=== PATIENT | male | born 1950 | race Caucasian/White ===

== ENCOUNTER 2017-04-09 18:35 | Inpatient (IN) | payer MEDICARE, OTHER ==
[2017-04-09] MEDS ORDERED: IOHEXOL 350 MG/ML 10 ML VIAL (for RAD DIAG) IVCONTRAST ONE ×2 (18:36→21:10)
[2017-04-09] MEDS ORDERED: MORPHINE SULFATE 4 MG/ML INJ ONE ×2 (18:40→18:48)
[2017-04-09] MEDS ORDERED: DIPHTH/TETANUS/ACEL PERTUSSIS (BOOSTER) 0.5 ML VIAL/PFS IM ONE (18:47)
[2017-04-09] MEDS ORDERED: ceFAZolin 2 GM PREMIX 50 ML ONE (18:48)
[2017-04-09 18:50] VITALS: O2SAT 99
[2017-04-09 19:00] LABS: I-STAT POTASSIUM 4.1 MMOL/L (3.5-4.9)
[2017-04-09 19:01] LABS: AUTOMATED NEUTROPHIL # 11.9 TH/MM3 (1.8-7.7); BASOPHIL # 0.1 TH/MM3 (0-0.2); BASOPHIL % 0.7 % (0.0-2.0); EOSINOPHIL # 0.1 TH/MM3 (0-0.4); EOSINOPHIL % 0.9 % (0.0-4.0); HEMATOCRIT 42.8 % (39.0-51.0); HEMO FLAGS DIFF FINAL; LYMPH % 14.2 % (9.0-44.0); LYMPHOCYTE # 2.2 TH/MM3 (1.0-4.8); MEAN CORPUSCULAR HEMOGLOBIN 36.2 PG (27.0-34.0); MEAN CORPUSCULAR HGB CONC 35.8 % (32.0-36.0); NEUT % 78.2 % (16.0-70.0); PLATELET COUNT 276 TH/MM3 (150-450); RED BLOOD COUNT 4.24 MIL/MM3 (4.50-5.90); RED CELL DISTRIBUTION WIDTH 15.1 % (11.6-17.2); WHITE BLOOD COUNT 15.3 TH/MM3 (4.0-11.0)
[2017-04-09 19:11] LABS: APTT (PATIENT) 23.5 SEC (24.3-30.1); INTERNATIONAL NORMALIZED RATIO 1.1 RATIO; PROTHROMBIN TIME - PATIENT 10.7 SEC (9.8-11.6)
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
[2017-04-09] MEDS ORDERED: RESP: ALBUTEROL 2.5 MG/IPRATROPIUM 0.5 MG NEB (SCH) NEB ONE (20:30)
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
[2017-04-09 20:40] VITALS: BP 159/105; PULSE 112; RESP 20; O2SAT 94
[2017-04-09] MEDS ORDERED: MORPHINE SULFATE 2 MG/ML INJ IV PUSH ONE (20:45)
[2017-04-09 20:52] VITALS: O2SAT 97
[2017-04-09 21:06] VITALS: BP 141/81; PULSE 105; RESP 24; O2SAT 97
[2017-04-09] MEDS ORDERED: ONDANSETRON HCL 4 MG/2 ML VIAL IV PUSH PRN (22:00)
[2017-04-09] MEDS ORDERED: ACETAMINOPHEN 500 MG CPLT PO PRN (22:00)
[2017-04-09] MEDS ORDERED: SODIUM CHLORIDE 0.9% FLUSH 10 ML FLUSH IV FLUSH PRN (22:00)
[2017-04-09] MEDS: SODIUM CHLOR 0.9% 1000 ML INJ 1,000 ML IV SCH (22:25)
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
[2017-04-09] MEDS: MORPHINE SULFATE 2 MG/ML INJ IV PUSH PRN (22:29)
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
[2017-04-10] VITALS (12 sets, daily range): BP systolic 111–165; BP diastolic 73–85; PULSE 77–94; RESP 12–20; TEMP 79.8–98.5; O2SAT 97–98
[2017-04-10] MEDS ORDERED: ONDANSETRON HCL 4 MG/2 ML VIAL IV PUSH PRN (00:15)
[2017-04-10] MEDS ORDERED: LACTULOSE SYRUP 20 GM/30 ML CUP PO PRN (00:15)
[2017-04-10] MEDS ORDERED: CHLORHEXIDINE GLUCONATE 2 % 1 PACK (2 CLOTHS) TOP PRN (00:15)
[2017-04-10] MEDS ORDERED: BISACODYL 10 MG SUPP RECTAL PRN (00:15)
[2017-04-10] MEDS ORDERED: MAGNESIUM HYDROXIDE SUSP 30 ML CUP PO PRN (00:15)
[2017-04-10] MEDS ORDERED: MISCELLANEOUS NURSING INFORMATION XX SCH (00:15)
[2017-04-10] MEDS ORDERED: SODIUM CHLORIDE 0.9% FLUSH 10 ML FLUSH IV FLUSH PRN (00:15)
[2017-04-10] MEDS ORDERED: RESP: ALBUTEROL 2.5 MG/3 ML NEB (PRN) INH (00:15)
[2017-04-10] MEDS: ACETAMINOPHEN/HYDROcodone 325 MG/7.5 MG TAB PO PRN ×3 (00:23→14:52)
[2017-04-10] MEDS: CHLORHEXIDINE GLUCONATE 2 % 1 PACK (2 CLOTHS) TOP SCH (01:32)
[2017-04-10] MEDS: MORPHINE SULFATE 2 MG/ML INJ IV PUSH PRN ×4 (02:51→18:13)
[2017-04-10] MEDS: SODIUM CHLOR 0.9% 1000 ML INJ 1,000 ML IV SCH ×3 (06:34→21:01)
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
[2017-04-10] MEDS: RESP: ALBUTEROL 2.5 MG/IPRATROPIUM 0.5 MG NEB (SCH) NEB ×3 (07:27→14:43)
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
[2017-04-10] MEDS: FAMOTIDINE 20 MG/2 ML VIAL IV PUSH SCH ×2 (08:38→21:07)
[2017-04-10] MEDS: SODIUM CHLORIDE 0.9% FLUSH 10 ML FLUSH IV FLUSH SCH ×2 (08:39→21:00)
[2017-04-10] MEDS: DOCUSATE SODIUM 50 MG/SENNA 8.6 MG TAB PO SCH ×3 (08:39→21:07)
[2017-04-10] MEDS ORDERED: SODIUM CHLORIDE 0.9% FLUSH 10 ML FLUSH IV FLUSH SCH (09:00)
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
[2017-04-10] MEDS ORDERED: ceFAZolin INJ 1,000 MG VIAL ONE (10:03)
[2017-04-10] MEDS ORDERED: GENTAMICIN SULFATE 80 MG/2 ML VIAL ONE (10:03)
[2017-04-10] MEDS ORDERED: VANCOMYCIN HCL 1000 MG VIAL ONE (10:03)
[2017-04-10] MEDS ORDERED: SODIUM CHLOR 0.9% 250 ML INJ 250 ML ONE (10:04)
[2017-04-10] MEDS ORDERED: BACITRACIN TOP OINT 15 GM TUBE ONE (10:04)
[2017-04-10] MEDS ORDERED: ACETAMINOPHEN 1000 MG/100 ML 100 ML IV ONE (10:12)
[2017-04-10] MEDS ORDERED: chlordiazePOXIDE 25 MG CAP PO PRN (11:00)
--- NOTE | 2017-04-10 11:33 | PD.OP ---
cc: Luis A Rojas MD Operative Report Date of Surgery: Apr 10, 2017 Preoperative Diagnosis: Comminuted displaced left distal radius fracture Minimally displaced left fifth metacarpal fracture Postoperative Diagnosis: Procedure: External fixation left wrist, open reduction internal fixation left distal radius Surgeon: Luis A Rojas Stem Setter(s): NICOL Mckeon PA-C The surgical procedure was assisted by my physician geriatric assistant. My P.A. presence was necessary throughout this case for the manipulation and positioning of the surgical extremity. My P.A. was assisting me throughout the duration of this procedure. The skill set of a physician geriatric assistant was medically necessary to complete this procedure. During the surgical case the nursing surgical services director was working at the back table and the physician geriatric assistant was directly assisting me. Operation and Findings: Patient was seen and evaluated preoperatively and found to have a displaced intra-articular left distal radius fracture. Informed consent was obtained after detailed discussion of risk and benefits including bleeding, infection, injury to arteries, nerves, and blood vessels, weakness and numbness of hand, and tendon rupture. Informed consent was obtained. Patient received IV antibiotics prior to incision. Timeout procedure was performed. Operative extremity was prepped with alcohol followed by Hibiclens and draped usual sterile fashion. A standard volar approach to the distal radius was utilized. A 3 inch incision was made over the FCR tendon. Tendon sheath was opened. Pronator quadratus was elevated up. The fracture site was now visualized. The fracture did have intra-articular extension. There was comminution of the articular surface and metaphyseal region. Traction was applied. At this point decision was made to apply external fixation to coffee roaster helper in reduction. Small incisions were made over the distal radius and second metacarpal. Soft tissue was dissected bluntly. Pin sites are predrilled. Synthes external fixator pins were now placed into the radial shaft and second metacarpal. Clamps were applied. Traction was applied across the wrist. The external fixator was tightened to hold reduction. Next attention was turned back towards open reduction internal fixation of fracture. The articular surface was reduced. Fracture fragments were manipulated to achieve excellent reduction. K wires were used to hold provisional fixation. Fluoroscopy confirmed appropriate alignment of fracture. A Synthes 2 column variable angle distal radius plate was selected. Plate was provisionally fixed to bone with K wires. 2.7 and 2.4 cortical screws were used to compress plate to bone. Fluoroscopy confirmed appropriate alignment of fracture with well-placed hardware. Multiple 2.4 locking screws were now placed distally. Screws were predrilled and measured for appropriate length. 2 additional screws were placed into the shaft. K wires were removed. Final fluoroscopy revealed excellent of fracture with well-placed hardware. The wound was thoroughly irrigated with sterile saline. Subcutaneous tissue was closed with 3-0 Vicryl and skin was closed with 3-0 nylon. Sterile dressings were applied with Xeroform, 4 x 4, soft roll, and a well padded ulnar gutter splint. Patient was awakened and transferred to recovery room in stable condition Luis A Rojas MD Apr 10, 2017 11:33
--- NOTE | 2017-04-10 11:50 | RADRPT ---
EXAM DATE/TIME: 04/10/2017 11:24 [facility] COMPARISON: WRIST LEFT LIMITED (AP & LAT), April 09, 2017, 18:36. INDICATIONS : Post-op ORIF left distal radius fracture. MEDICAL HISTORY : None. SURGICAL HISTORY : None. ENCOUNTER: Initial ACUITY: 2 days PAIN SCORE: Non-responsive. LOCATION: Left upper extremity FINDINGS: Two view examination of the left wrist demonstrates interval placement of the fracture fixation plate anteriorly across the radial fracture with now excellent alignment of the bone fragments. CONCLUSION: The distal radius has been fixated with an anterior plate now in excellent position . Len Pierson MD on April 10, 2017 at 11:47 Board Certified Radiologist. This report was verified electronically.
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
[2017-04-10] MEDS: MULTIVITAMIN INJ 10 ML, THIAMINE INJ 100 MG, FOLIC ACID INJ 1 MG in SODIUM CHLORID 0.9%... IV SCH (18:12)
[2017-04-10] MEDS: ACETAMINOPHEN/HYDROcodone 325 MG/10 MG TAB PO PRN (21:07)
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
[2017-04-11] VITALS (9 sets, daily range): BP systolic 113–138; BP diastolic 75–91; PULSE 80–88; RESP 16–20; TEMP 96.1–97.2; O2SAT 95–100
[2017-04-11] MEDS: MORPHINE SULFATE 2 MG/ML INJ IV PUSH PRN (00:23)
[2017-04-11] MEDS: ACETAMINOPHEN/HYDROcodone 325 MG/10 MG TAB PO PRN ×5 (03:18→22:49)
[2017-04-11] MEDS ORDERED: VENTAER INH (03:23)
[2017-04-11] MEDS ORDERED: ADVA100A INH (03:23)
[2017-04-11] MEDS ORDERED: SYMB80AE INH (03:23)
[2017-04-11] MEDS ORDERED: MORPHINE SULFATE 4 MG/ML INJ IV PUSH ONE (03:55)
[2017-04-11] MEDS: CHLORHEXIDINE GLUCONATE 2 % 1 PACK (2 CLOTHS) TOP SCH (04:00)
[2017-04-11 04:05] LABS: AUTOMATED NEUTROPHIL # 6.8 TH/MM3 (1.8-7.7); BASOPHIL % 0.3 % (0.0-2.0); EOSINOPHIL % 0.1 % (0.0-4.0); HEMATOCRIT 36.5 % (39.0-51.0); HEMO FLAGS DIFF FINAL; LYMPH % 10.5 % (9.0-44.0); LYMPHOCYTE # 0.9 TH/MM3 (1.0-4.8); MEAN CELL VOLUME 102.3 FL (80.0-100.0); MEAN CORPUSCULAR HEMOGLOBIN 35.1 PG (27.0-34.0); MEAN CORPUSCULAR HGB CONC 34.3 % (32.0-36.0); MONO % 11.6 % (0.0-8.0); NEUT % 77.5 % (16.0-70.0); PLATELET COUNT 141 TH/MM3 (150-450); RED BLOOD COUNT 3.56 MIL/MM3 (4.50-5.90); RED CELL DISTRIBUTION WIDTH 15.1 % (11.6-17.2); WHITE BLOOD COUNT 8.8 TH/MM3 (4.0-11.0)
[2017-04-11 04:26] LABS: ALT (GPT) 24 U/L (12-78); ANION GAP 5 MEQ/L (5-15); AST (GOT) 30 U/L (15-37); BICARBONATE 29.4 MEQ/L (21.0-32.0); BLOOD UREA NITROGEN 13 MG/DL (7-18); CHLORIDE 104 MEQ/L (98-107); GLOMERULAR FILTRATION RATE 111 ML/MIN (>89); POTASSIUM 4.2 MEQ/L (3.5-5.1); SODIUM (NA) 138 MEQ/L (136-145)
[2017-04-11 04:28] LABS: ALKALINE PHOSPHATASE 67 U/L (45-117); TOTAL BILIRUBIN ADULT 1.1 MG/DL (0.2-1.0)
--- NOTE | 2017-04-11 07:12 | PD.ORT.PN ---
Subjective Subjective Remarks Resting comfortably with no new complaints. Objective Vitals Vital Signs Date Time Temp Pulse Resp B/P (MAP) Pulse Ox O2 Delivery O2 Flow Rate FiO2 04/11/17 04:00 97.2 85 20 118/79 (92) 99 04/11/17 03:33 98 Nasal Cannula 2.00 04/11/17 00:31 98 04/11/17 00:00 96.1 80 16 113/75 (88) 100 04/10/17 20:00 96.6 88 18 111/75 (87) 98 04/10/17 19:31 Room Air 04/10/17 16:00 77 18 128/73 (91) 97 04/10/17 13:00 86 04/10/17 13:00 98.4 86 14 139/82 (101) 98 04/10/17 12:30 83 14 143/79 (100) 99 Nasal Cannula 3 04/10/17 12:15 88 15 161/81 (107) 99 Nasal Cannula 3 04/10/17 12:06 98.4 93 12 131/74 (93) 98 Nasal Cannula 3 04/10/17 10:00 77 04/10/17 09:30 95 Nasal Cannula 2.00 04/10/17 08:00 87 04/10/17 08:00 79.8 86 20 120/85 (97) 97 04/10/17 07:31 97 Nasal Cannula 4.00 I/O 04/10/17 04/10/17 04/10/17 04/11/17 04/11/17 04/11/17 07:00 15:00 23:00 07:00 15:00 23:00 Intake Total 1250 ml 796 ml 1413 ml Output Total 1200 ml 400 ml 700 ml 350 ml Balance -1200 ml 850 ml 96 ml 1063 ml Intake Oral 240 ml 240 ml IV Total 556 ml 1173 ml Other 1250 ml Output Urine Total 1200 ml 350 ml 700 ml 350 ml Estimated Blood Loss 50 ml # Bowel Movements 0 0 0 Result Diagram: 04/11/17 0352 04/11/17 035 Imaging Last 24 hours Impressions Thoracic Spine CT 04/09/17 1838 Signed Impressions: Service Date/Time: Sunday, April 09, 2017 19:16 - CONCLUSION: Fractures of the anterior T3 and T4 with significant paraspinal soft tissue swelling. No involvement of the posterior cortex. There is approximately 15%% loss of height of the T4 vertebral body. Elijah Joseph MD Pelvis X-Ray 04/09/171837 Signed Impressions: Service Date/Time: Sunday, April 09, 2017 18:36 - CONCLUSION: Limited quality examination should be considered nondiagnostic for exclusion of fractures. Elijah Joseph MD Lumbar Spine CT 04/09/171837 Signed Impressions: Service Date/Time: Sunday, April 09, 2017 19:16 - CONCLUSION: 1. No evidence of fracture or spondylolisthesis. 2. Disc bulging at L3-L5 3. Central and left sided epidural impressions due to either to disc bulge or protrusion at L5-S1. Elijah Joseph MD Head CT 04/09/171837 Signed Impressions: Service Date/Time: Sunday, April 09, 2017 19:03 - CONCLUSION: 1. No acute findings in the brain. 2. Right high frontal scalp hematoma without evidence of skull fracture. 3. There is some image degradation of the lobe convexity images due to extrinsic metallic wires and motion. Recommend performing a followup examination in 12-24 hours for complete clearance. Eliajh Joseph MD Chest X-Ray 04/09/171837 Signed Impressions: Service Date/Time: Sunday, April 09, 2017 18:36 - CONCLUSION: The lungs are clear. Elijah Joseph MD Chest CT 04/09/171837 Signed Impressions: Service Date/Time: Sunday, April 09, 2017 19:16 - CONCLUSION: 1. T4 fracture of the anterior body with associated soft tissue swelling in the pre-spinal soft tissues. 2. Moderate severity emphysema. No focal parenchymal opacities or pneumothorax. Elijah Joseph MD Cervical Spine CT 04/09/171837 Signed Impressions: Service Date/Time: Sunday, April 09, 2017 19:03 - CONCLUSION: 1. Mildly comminuted fractures of the left lateral mass of C1 traversing through the foramen transversarium. 2. C4 fractures including anterior superior vertebral body chip fracture and minimal displaced fracture of the right bifid spinous process. 3. C7 fractures, nondisplaced including the angle of the superior articular facet and lateral mass including junction with the lamina. 4. The atlantoaxial articulation is maintained and there is normal alignment of vertebral bodies throughout the cervical spine without evidence of compression deformities. Elijah Joseph MD Abdomen/Pelvis CT 04/09/17 1838 Signed Impressions: Service Date/Time: Sunday, April 09, 2017 19:16 - CONCLUSION: 1. No evidence of free fluid or solid organ disruption. 2. Abnormal appearance to the liver with numerous small round hypodense structures, possibly representing numerous cysts. This is incompletely evaluated Elijah Joseph MD Objective Remarks Bilateral lower extremities: Full range of motion and neurovascularly intact Right upper extremity: Full range of motion neurovascularly intact Left upper extremity: Clean dry dressings intact. External fixator in place. Intact sensation in all fingers. Is able fully extend and flex all fingers good capillary refills Assessment & Plan Assessment and Plan Severely comminuted left distal radius fracture status post ORIF and external fixation of left distal radius POD 1 Nonweightbearing at upper extremity Maintain dressings of wrist Nonweightbearing left wrist and hand. May use elbow for repositioning Follow-up x-rays in [address] Rojas or James Richey Jr. Apr 11, 2017 07:12
[2017-04-11] MEDS ORDERED: VITA500012 PO (07:13)
[2017-04-11] MEDS ORDERED: HYDR-3583 PO (07:13)
[2017-04-11] MEDS ORDERED: CALCTAB19 PO (07:13)
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
[2017-04-11] MEDS: RESP: ALBUTEROL 2.5 MG/IPRATROPIUM 0.5 MG NEB (SCH) NEB (08:30)
[2017-04-11] MEDS: SODIUM CHLORIDE 0.9% FLUSH 10 ML FLUSH IV FLUSH SCH ×2 (09:00→20:00)
[2017-04-11] MEDS: MAGNESIUM HYDROXIDE SUSP 30 ML CUP PO SCH ×2 (09:38→17:58)
[2017-04-11] MEDS: DOCUSATE SODIUM 50 MG/SENNA 8.6 MG TAB PO SCH ×2 (09:38→19:59)
[2017-04-11] MEDS: FAMOTIDINE 20 MG TAB PO SCH ×2 (09:38→20:00)
[2017-04-11] MEDS ORDERED: NON-FORMULARY DRUG (Fluticasone-Salmeterol Inh (Advair Diskus Inh) 1 PUFF) INH SCH (10:45)
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
[2017-04-11] MEDS: CALCIUM/VITAMIN D 250 MG/125 U TAB PO SCH ×2 (12:00→19:59)
[2017-04-11] MEDS ORDERED: ERGOCALCIFEROL (VIT D2) 50,000 UNIT CAP PO SCH (12:00)
[2017-04-11] MEDS: BUDESONIDE-FORMOTEROL 80/4.5 MCG INHALER INH SCH ×2 (12:00→21:14)
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
[2017-04-11] MEDS: ENOXAPARIN SODIUM 30 MG/0.3 ML SYRINGE SQ SCH (13:29)
[2017-04-11] MEDS: SODIUM CHLOR 0.9% 1000 ML INJ 1,000 ML IV SCH ×2 (13:53→21:54)
[2017-04-11] MEDS: MULTIVITAMIN INJ 10 ML, THIAMINE INJ 100 MG, FOLIC ACID INJ 1 MG in SODIUM CHLORID 0.9%... IV SCH (17:58)
[2017-04-11] MEDS: SENNOSIDES 8.6 MG TAB PO PRN (19:59)
[2017-04-11] MEDS ORDERED: CHLO25CA9 PO (22:17)
[2017-04-11] MEDS ORDERED: ENOX30P SQ (22:17)
[2017-04-11] MEDS ORDERED: ACET500T13 PO (22:17)
[2017-04-11] MEDS ORDERED: FAMO20TA2 PO (22:17)
[2017-04-11] MEDS ORDERED: MAGN30S PO (22:17)
[2017-04-11] MEDS ORDERED: HYDR-3580 PO (22:17)
[2017-04-11] MEDS ORDERED: PERI PO (22:17)
[2017-04-11] MEDS: ALBUTEROL SULFATE 90 MCG/ACT HFA 8 GM INHALER INH PRN ×2 (22:49→22:52)
[2017-04-12] VITALS: BP 133/82; PULSE 79; RESP 20; TEMP 96.7; O2SAT 99
[2017-04-12] MEDS: ENOXAPARIN SODIUM 30 MG/0.3 ML SYRINGE SQ SCH (00:18)
[2017-04-12] MEDS: CHLORHEXIDINE GLUCONATE 2 % 1 PACK (2 CLOTHS) TOP SCH (00:52)
[2017-04-12] MEDS: MAGNESIUM HYDROXIDE SUSP 30 ML CUP PO SCH (00:52)
[2017-04-12] MEDS: ACETAMINOPHEN/HYDROcodone 325 MG/10 MG TAB PO PRN ×3 (02:28→10:47)
[2017-04-12 05:22] LABS: AUTOMATED NEUTROPHIL # 3.9 TH/MM3 (1.8-7.7); BASOPHIL % 0.3 % (0.0-2.0); EOSINOPHIL # 0.1 TH/MM3 (0-0.4); EOSINOPHIL % 1.3 % (0.0-4.0); HEMATOCRIT 33.1 % (39.0-51.0); HEMO FLAGS DIFF FINAL; LYMPH % 15.6 % (9.0-44.0); LYMPHOCYTE # 0.8 TH/MM3 (1.0-4.8); MEAN CORPUSCULAR HEMOGLOBIN 35.2 PG (27.0-34.0); MEAN CORPUSCULAR HGB CONC 34.5 % (32.0-36.0); MONO % 9.3 % (0.0-8.0); NEUT % 73.5 % (16.0-70.0); PLATELET COUNT 142 TH/MM3 (150-450); RED BLOOD COUNT 3.24 MIL/MM3 (4.50-5.90); WHITE BLOOD COUNT 5.3 TH/MM3 (4.0-11.0)
[2017-04-12 05:35] LABS: ANION GAP 6 MEQ/L (5-15); AST (GOT) 26 U/L (15-37); BICARBONATE 29.3 MEQ/L (21.0-32.0); BLOOD UREA NITROGEN 8 MG/DL (7-18); CHLORIDE 103 MEQ/L (98-107); GLOMERULAR FILTRATION RATE 156 ML/MIN (>89); POTASSIUM 3.8 MEQ/L (3.5-5.1); SODIUM (NA) 138 MEQ/L (136-145)
[2017-04-12 05:36] LABS: ALT (GPT) 19 U/L (12-78)
[2017-04-12 05:38] LABS: ALKALINE PHOSPHATASE 61 U/L (45-117); TOTAL BILIRUBIN ADULT 0.8 MG/DL (0.2-1.0)
[2017-04-12] MEDS: ALBUTEROL SULFATE 90 MCG/ACT HFA 8 GM INHALER INH PRN ×2 (06:04→10:24)
[2017-04-12] MEDS: CALCIUM/VITAMIN D 250 MG/125 U TAB PO SCH (07:36)
[2017-04-12] MEDS: DOCUSATE SODIUM 50 MG/SENNA 8.6 MG TAB PO SCH (07:36)
[2017-04-12] MEDS: FAMOTIDINE 20 MG TAB PO SCH (07:36)
[2017-04-12] MEDS: SENNOSIDES 8.6 MG TAB PO PRN (07:36)
[2017-04-12] MEDS: SODIUM CHLORIDE 0.9% FLUSH 10 ML FLUSH IV FLUSH SCH (07:45)
[2017-04-12] MEDS: SODIUM CHLOR 0.9% 1000 ML INJ 1,000 ML IV SCH (07:45)
[2017-04-12] MEDS: BUDESONIDE-FORMOTEROL 80/4.5 MCG INHALER INH SCH (07:45)
[2017-04-12 08:00] VITALS: BP 124/80; PULSE 82; RESP 17; TEMP 97.6; O2SAT 99
[2017-04-12] MEDS ORDERED: INFLUENZA VIRUS VACCINE (QUADRIVALENT) 0.5 ML SYR IM ONE (10:00)
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
[2017-04-12 11:43] VITALS: BP 137/78; PULSE 83; RESP 17; TEMP 97.7; O2SAT 96
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
== END 2017-04-12 11:56 | DRG 511 ==
LOC: NEPI 18:35 → EDBD 21:46 → NEDA 21:46 → N03A 23:00 → N06A 04-10 15:34
PROVIDERS: ADMIT Surgery; ATTEND Surgery
PROC: 0PSJ35Z Reposition Left Radius with External Fixation Device, Percutaneous Approach (ICD-10-PCS; 2017-04-10)
PROC: 0PSJ04Z Reposition Left Radius with Internal Fixation Device, Open Approach (ICD-10-PCS; principal; 2017-04-10 10:21)
DX: S52.572A Other intraarticular fracture of lower end of left radius, initial encounter for closed fracture (principal); S12.040A Displaced lateral mass fracture of first cervical vertebra, initial encounter for closed fracture; S12.300A Unspecified displaced fracture of fourth cervical vertebra, initial encounter for closed fracture; S12.600A Unspecified displaced fracture of seventh cervical vertebra, initial encounter for closed fracture; S06.0X9A Concussion with loss of consciousness of unspecified duration, initial encounter; S52.612A Displaced fracture of left ulna styloid process, initial encounter for closed fracture; J44.9 Chronic obstructive pulmonary disease, unspecified; S62.317A Displaced fracture of base of fifth metacarpal bone, left hand, initial encounter for closed fracture; S62.522A Displaced fracture of distal phalanx of left thumb, initial encounter for closed fracture; S00.91XA Abrasion of unspecified part of head, initial encounter; S00.03XA Contusion of scalp, initial encounter; V29.9XXA Motorcycle rider (driver) (passenger) injured in unspecified traffic accident, initial encounter; R33.9 Retention of urine, unspecified; Z87.891 Personal history of nicotine dependence; Z23 Encounter for immunization
CPT/HCPCS: 70450; 70498; 71010; 71260; 72125; 72129; 72132; 72170; 73100; 73110; 73200; 74177; 76000; 80053; 82435; 82565; 82947; 84132; 84295; 84520; 85025; 85610; 85730; 86850; 86900; 86901; 87641; 90471; 90686; 90715; 94150; 94640; 94664; A0431-QM-SH; A0436-QM-SH; G0008; J0131; J0690; J1580; J1650; J2270; J2405; J3370; J3411; J7030; J7040; J7050; J7613; L0150; L0172; L0200; L0484; Q2038; Q9967